=== PATIENT | female | born 1980 | race Caucasian/White ===

== ENCOUNTER → 2016-11-23 | Outpatient (CLI) | payer OTHER ==
--- NOTE | 2016-11-23 14:46 | MM ---
Reason for exam: clinical finding. Baseline mammogram. History: Took hormonal contraceptives for 5 years beginning at age 14. Indicated problem(s): palpable abnormality, lump or thickening, and pain in the right breast. Physical Findings: Nurse Summary: 1cm nodule in the right breast at 10 o'clock (Dr. Banks). [facility] Diagnostic Mammo w CAD CHARLES Bilateral CC and MLO view(s) were taken. XCCL view(s) were taken of the right breast. The breast tissue is heterogeneously dense. This may lower the sensitivity of mammography. There is no discrete abnormality. These results were verbally communicated with the patient and result sheet given to the patient on 11/23/16. ASSESSMENT: Negative, BI-RAD 1 RECOMMENDATION: Routine screening mammogram of both breasts at age 38.
--- NOTE | 2016-11-23 14:47 | USB ---
Reason for exam: clinical finding. History: Took hormonal contraceptives for 5 years beginning at age 14. Indicated problem(s): palpable abnormality, lump or thickening, and pain in the right breast. US Breast RT Right breast ultrasound includes all four quadrants, the retroareolar region and axilla. Finding demonstrates a 0.5 x 0.3 x 0.5cm oval, cystic, hypoechoic lesion at 12 o'clock. These results were verbally communicated with the patient and result sheet given to the patient on 11/23/16. ASSESSMENT: Benign, BI-RAD 2 RECOMMENDATION: Routine screening mammogram of both breasts at age 38.
--- NOTE | 2016-11-24 10:05 | WWHP ---
DATE OF SERVICE: 11/23/2016 CHIEF COMPLAINT: The patient is here for her routine gynecologic exam and breast check. HPI: This is a 35-year-old G3, P3 with an LMP of 2011. She is status post laparoscopic hysterectomy for adenomyosis. She believes one ovary was removed at that time but is uncertain of the side. She states about 3 weeks ago she developed right breast pain while exercising and she felt a dime-sized lump in that area. This is at the upper outer aspect of the right breast. It has been very painful and tender, but does seem to be improving over the last week. PAST MEDICAL HISTORY: Chronic bowel problems and history of hypothyroidism but is currently not on any medications for this. MEDICATIONS: None. ALLERGIES: COMPAZINE WHICH MADE HER FEEL " CRAZY. " NAPROXEN SODIUM, WHICH CAUSED STOMACH UPSET AND BACTRIM WHICH CAUSED RASH AND HIVES. PAST SURGICAL HISTORY: Anal sphincter surgery 2000. Multiple colonoscopies and the last one was 2008. Three laparoscopic examinations in the past, tubal ligation, approximately 2003, laparoscopic hysterectomy with unilateral oophorectomy 2011, rotator cuff surgery repairs in the past. Past OB history: 3 vaginal deliveries. Past [employer] history: She is status post laparoscopic hysterectomy for adenomyosis and this was benign. She was told she had HPV and did have cryotherapy of the cervix x3 in the past. She has no other history of STDs and denies known genital warts. SOCIAL HISTORY: She smokes about 1 pack of cigarettes per day, about 2 alcoholic drinks per year and had to using marijuana on a fairly regular basis. She denies any other drug use. She is a single but has been with her partner since approximately 2003 and they do live together. She does not work outside the home. FAMILY HISTORY: Brother, sister and father had hypertension. Grandmother had heart disease. REVIEW OF SYSTEMS: Weight has been fairly stable and her weight is typically between 109 and 115 pounds. She denies respiratory, cardiac, or GI problems. PHYSICAL EXAM: Blood pressure 104/68. Height 5 feet 0 inches. Weight 110 pounds. Temperature 98.5, pulse 80. This is a well-developed, well-nourished white female who is alert and oriented x3 in no acute distress. HEENT is within normal limits. NECK: Supple without mass or thyromegaly. CHEST AND LUNGS: Clear to auscultation. HEART: Regular rate and rhythm. Breasts there is moderate fibrous tissue throughout the breast. There is moderately tender area at approximately the 10:00 position. This measures approximately 1 cm and is at the very lateral aspect of the breast tissue. It seems to be continuous with the fibrocystic tissue found throughout the breast. A marker was placed at this area. There are no discrete masses palpable throughout the rest of the breast tissue. There is no nipple discharge. No unusual puckering or dimpling. Axillary exam is negative for adenopathy. BACK: Negative for CVA tenderness. ABDOMEN: Soft, nontender, without palpable masses. PELVIC EXAM: Normal external genitalia. The vagina appears normal without significant atrophy. There is no evidence of prolapse. Bimanual exam is negative for mass or tenderness. Rectovaginal exam is negative for mass or tenderness and is negative for occult blood. EXTREMITIES: Nontender. IMPRESSION: 1. A 35-year-old female who is status post laparoscopic hysterectomy for benign reasons with normal pelvic exam. 2. Three week history of right breast pain with a small lump associated with the painful area. The palpation of the breast is most consistent with fibrocystic changes without a suspicious feeling mass. PLAN: 1. Pap smears have been discontinued. 2. Self-breast examination was discussed. 3. Diagnostic baseline mammogram with right breast ultrasound will be done today. 4. We have had a long discussion regarding the breasts findings. I have recommended that she try to decrease caffeine intake. She states she does drink a lot of caffeinated pop. If the mammogram and ultrasound are benign appearing, we will consider conservative management. 5. I have recommended she try to quit smoking. 6. She will return in one year and p.r.n.
== END | disposition home or self-care (01) ==
LOC: WWCWWP 12:34
PROVIDERS: ATTEND Obstetrics & Gynecology
DX: N64.4 Mastodynia (principal); N63 Unspecified lump in breast
CPT/HCPCS: 76641; G0204

== ENCOUNTER 2017-08-31 15:23 | Emergency (ER) | payer OTHER ==
[2017-08-31 15:34] VITALS: BP 119/79; PULSE 86; RESP 18; TEMP 97.6
--- NOTE | 2017-08-31 15:42 | ED ---
Upper Extremity HPI - General Chief Complaint: Extremity Injury, Upper Stated Complaint: shoulder pain Time Seen by Provider: 08/31/17 15:26 Source: patient, RN notes reviewed Mode of arrival: ambulatory Limitations: no limitations - History of Present Illness Initial Comments: This is a 36-year-old female who presents to the emergency department with chief complaint of right shoulder pain. Patient states that she suffered from a rotator cuff injury in for which she had surgery. 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 She states that on Tuesday evening she was pulling a tote that was on a forklift missing a tire. She states that when she pulled the tote "the tote pulled back." Patient states that she has normal range of motion of her right shoulder but complains of increased pain from usual. She states that she did present to [facility] where no x-rays were obtained. They diagnosed her with a strain but did not give her a return to work note. Patient wishes to return to work so presents to this emergency department to receive a note. She states that she will not return to [facility] as she felt that she was treated poorly. She states that she does have a follow-up appointment with an orthopedist next week. Patient denies any other injuries. Has no other complaints. Denies fever, chills, chest pain, shortness of breath, abdominal pain, nausea or vomiting, constipation or diarrhea, dysuria or hematuria, numbness or tingling, headache or vision changes. - Related Data Previous Rx's Medication Instructions Recorded Ciprofloxacin HCl [Cipro] 500 mg PO Q12HR #20 day 06/04/17 Allergies Allergy/AdvReac Type Severity Reaction Status Date / Time naproxen Allergy Unknown Verified 08/31/17 15:34 prochlorperazine Allergy Unknown Verified 08/31/17 15:34 [From Compazine] sulfamethoxazole Allergy Unknown Verified 08/31/17 15:34 [From Bactrim] trimethoprim [From Bactrim] Allergy Unknown Verified 08/31/17 15:34 Review of Systems ROS Statement: Those systems with pertinent positive or pertinent negative responses have been documented in the HPI. ROS Other: All systems not noted in ROS Statement are negative. Past Medical History Past Medical History: No Reported History History of Any Multi-Drug Resistant Organisms: None Reported Past Surgical History: Hysterectomy, Orthopedic Surgery, Tubal Ligation Additional Past Surgical History / Comment(s): laprascopy Past Psychological History: No Psychological Hx Reported Smoking Status: Current every day smoker Past Alcohol Use History: Rare Past Drug Use History: Marijuana General Exam - General Exam Comments Initial Comments: General: Awake and alert, well-developed; in no apparent distress. HEENT: Head atraumatic, normocephalic. Pupils are equal, round and reactive to light. Extraocular movements intact. Oropharynx moist without erythema or exudate. Neck: Supple. Normal ROM. Cardiovascular: Regular rate and rhythm. No murmurs, rubs or gallops. Chest symmetrical. Respiratory: Lungs clear to auscultation bilaterally. No wheezes, rales or rhonchi. Normal respiratory effort with no use of accessory muscles. Musculoskeletal: Normal range of motion of right shoulder. There is tenderness on palpation of right AC joint. Sensation is intact. Strength 5/5. Radial pulses are 2+ equal and palpable bilaterally. Skin: [place], warm and dry without rashes or lesions. Neurological: Alert and oriented x3. CN II-XII grossly intact. Speech is fluent and answers are appropriate. No focal neuro deficits. Psychiatric: Normal mood and affect. No overt signs of depression or anxiety noted. Limitations: no limitations Course Vital Signs 08/31/17 15:32 Temperature 97.6 F Pulse Rate 86 Respiratory 18 Rate Blood Pressure 119/79 O2 Sat by Pulse 98 Oximetry Medical Decision Making - Medical Decision Making This is a 36-year-old female who presents to the emergency department with request for back to work note. Patient complains of right shoulder pain that started while at work this past Tuesday evening. She was seen at [facility] and did not receive any x-rays. Patient states that work requires a return to work note. X-rays were obtained here which revealed no acute abnormalities. However , because of patient's past shoulder history and the fact that I did not first evaluate her, I cannot provide patient with a return to work note. Patient is to follow-up with orthopedics as scheduled or primary care provider for return to work note. Patient's vital signs are stable and she is in no acute distress. She will be discharged home. Patient is in agreement and voices understanding. All questions were answered. - Radiology Data Radiology results: report reviewed Right shoulder x-ray impression: Postsurgical change with chronic widening of the AC joint which may be postsurgical or related to previous injury. Correlate with MRI if clinically warranted. AC joint x-ray impression: Post surgical change involving the right shoulder. Widening of the AC joint is seen on a chest x-ray dating back to 2012 and therefore likely related to a chronic AC joint injury or postsurgical. Disposition Clinical Impression: Right shoulder pain Disposition: HOME SELF-CARE Condition: Good Instructions: Shoulder Pain (ED) Additional Instructions: Please follow-up with orthopedics as scheduled. Please follow up with primary care provider within 1-2 days. Return to emergency department if symptoms should worsen or any concerns arise. Referrals: Nonstaff,Physician [Primary Care Provider] - 1-2 days Time of Disposition: 16:18
--- NOTE | 2017-08-31 15:59 | XR ---
EXAMINATION TYPE: XR AC joint BILAT DATE OF EXAM: 08/31/2017 COMPARISON: NONE HISTORY: Pain TECHNIQUE: 2 views of the AC joints are maintained bilaterally with and without weights. FINDINGS: AC joint on the left is normal in appearance. There is postsurgical change involving the right shoulder. There is widening of the AC joint measurin g 13 mm. There is no change in elevation of the clavicle on the with and without weight images. The A C joint distance appears stable dating back to 08/07/2012 and therefore chronic. IMPRESSION: 1. Postsurgical change involving the right shoulder. Widening of the AC joint is seen on a chest x-ra y dating back to 2012 and therefore likely related to a chronic AC joint injury or postsurgical.
--- NOTE | 2017-08-31 16:00 | XR ---
EXAMINATION TYPE: XR shoulder complete RT DATE OF EXAM: 08/31/2017 COMPARISON: NONE HISTORY: Pain TECHNIQUE: Three views are submitted. FINDINGS: The osseous structures are intact. There is no acute fracture or dislocation. Postsurgical changes i nvolving the right shoulder compatible with rotator cuff repair. Widening of the AC joint noted which is stable dating back to a chest x-ray of 2012 and therefore chronic. IMPRESSION: 1. Postsurgical change with chronic widening of the AC joint which may be postsurgical or related to previous injury. Correlate with MRI as clinically warranted.
== END 2017-08-31 16:30 | disposition home or self-care (01) ==
LOC: EC 15:23
DX: M25.511 Pain in right shoulder (principal); M25.811 Other specified joint disorders, right shoulder; F17.200 Nicotine dependence, unspecified, uncomplicated; Z88.1 Allergy status to other antibiotic agents; Z88.6 Allergy status to analgesic agent; Z88.8 Allergy status to other drugs, medicaments and biological substances; Z98.890 Other specified postprocedural states
CPT/HCPCS: 73050; 99283